=== PATIENT | female | born 1995 | race African-American/Black ===

== ENCOUNTER → 2017-12-03 | Emergency (ER) | payer OTHER ==
[~2017-12-03] VITALS: Ht 160 cm; Wt 85.3 kg
[~2017-12-03] MED LIST: KETO10TA2 PO; ZANTAC300 MG PO
== END | disposition home or self-care (01) ==
LOC: ER 22:57 → EDBD 23:16
DX: K29.00 Acute gastritis without bleeding (principal); R10.11 Right upper quadrant pain

== ENCOUNTER 2018-02-09 12:54 | Emergency (ER) | payer OTHER ==
[~2018-02-09] VITALS: Ht 160 cm; Wt 81.6 kg
== END 2018-02-09 17:52 | disposition home or self-care (01) ==
LOC: ER 12:54
DX: S63.681A Other sprain of right thumb, initial encounter (principal); S63.694A Other sprain of right ring finger, initial encounter; W21.06XA Struck by volleyball, initial encounter; Y93.68 Activity, volleyball (beach) (court); Y92.310 Basketball court as the place of occurrence of the external cause; Y99.8 Other external cause status

== ENCOUNTER 2018-08-05 10:27 | Emergency (ER) | payer OTHER ==
[~2018-08-05] VITALS: Ht 162.6 cm; Wt 94.8 kg
[2018-08-05] MEDS ORDERED: PERCOCET 5-3251 EACH PO (11:14)
== END 2018-08-05 12:10 | disposition home or self-care (01) ==
LOC: ER 10:27
DX: K08.89 Other specified disorders of teeth and supporting structures (principal)

== ENCOUNTER 2018-08-17 23:44 | Emergency (ER) | payer OTHER ==
[~2018-08-17] VITALS: Ht 160 cm; Wt 93.4 kg
[~2018-08-17 23:44] MED LIST changes: +PERCOCET 5-3251 EACH PO
== END 2018-08-18 04:28 | disposition home or self-care (01) ==
LOC: ER 23:44
DX: B34.9 Viral infection, unspecified (principal); Z33.1 Pregnant state, incidental